=== PATIENT | female | born 1945 | race American Indian/Alaskan Native ===

== ENCOUNTER 2016-10-09 11:37 | Outpatient (CLI) | payer MEDICARE ==
[2016-10-09 12:25] LABS: Hematocrit 39.8 % (30.3-42.9); Hemoglobin 12.9 gm/dl (10.1-14.3); Mean Corpuscular HGB Conc 32 % (30-34); Mean Corpuscular Hemoglobin 29 pg (28-32); Mean Corpuscular Volume 91 fl (79-97); Platelet Count 171 K/mm3 (140-440); Red Blood Count 4.39 M/mm3 (3.65-5.03); Red Cell Distribution Width 14.2 % (13.2-15.2)
[2016-10-09 12:41] LABS: Alanine Aminotransferase 9 units/L (7-56); Albumin 3.9 g/dL (3.9-5); Albumin/Globulin Ratio 1.1 %; Alkaline Phosphatase 82 units/L (35-129); Anion Gap 16 mmol/L; BUN/Creatinine Ratio 5.71; Bilirubin,Total 0.6 mg/dL (0.1-1.2); Blood Urea Nitrogen 4 mg/dL (7-17); Calcium 9.3 mg/dL (8.4-10.2); Carbon Dioxide 27 mmol/L (22-30); Chloride 105.6 mmol/L (98-107); Glucose 90 mg/dL (65-100); Potassium 3.4 mmol/L (3.6-5.0); Sodium 145 mmol/L (137-145); Total Protein 7.3 g/dL (6.3-8.2); Uric Acid 3.8 mg/dL (3.5-7.6)
[2016-10-09 13:05] LABS: Erythrocyte Sedimentation Rate 28 mm/Hr (0-20)
== END 2016-10-09 11:38 | disposition home or self-care (01) ==
LOC: LAB 11:37
PROVIDERS: ATTEND Internal Medicine Rheumatology
DX: M15.0 Primary generalized (osteo)arthritis (principal); M06.9 Rheumatoid arthritis, unspecified
CPT/HCPCS: 36415; 80053; 82164; 84550; 85027; 85652; 86038; 86140; 86200; 86225; 86235; 86618

== ENCOUNTER 2017-01-29 16:59 | Outpatient (CLI) | payer MEDICARE ==
[2017-01-29 17:19] LABS: Basophils % (Auto) 1.2 % (0.0-1.8); Eosinophils % (Auto) 7.8 % (0.0-4.3); Hematocrit 40.5 % (30.3-42.9); Hemoglobin 13.3 gm/dl (10.1-14.3); Mean Corpuscular HGB Conc 33 % (30-34); Mean Corpuscular Hemoglobin 30 pg (28-32); Mean Corpuscular Volume 91 fl (79-97); Platelet Count 201 K/mm3 (140-440); Red Blood Count 4.45 M/mm3 (3.65-5.03); Red Cell Distribution Width 13.6 % (13.2-15.2); White Blood Count 4.7 K/mm3 (4.5-11.0)
[2017-01-29 17:42] LABS: Alanine Aminotransferase 9 units/L (7-56); Albumin 4.1 g/dL (3.9-5); Albumin/Globulin Ratio 1.1 %; Alkaline Phosphatase 74 units/L (35-129); Anion Gap 17 mmol/L; BUN/Creatinine Ratio 8.57; Blood Urea Nitrogen 6 mg/dL (7-17); Calcium 9.6 mg/dL (8.4-10.2); Carbon Dioxide 27 mmol/L (22-30); Chloride 103.8 mmol/L (98-107); Glucose 92 mg/dL (65-100); Potassium 3.8 mmol/L (3.6-5.0); Sodium 144 mmol/L (137-145); Total Protein 7.9 g/dL (6.3-8.2)
[2017-01-29 17:55] LABS: Erythrocyte Sedimentation Rate 37 mm/Hr (0-20)
== END 2017-01-29 17:00 | disposition home or self-care (01) ==
LOC: LAB 16:59
PROVIDERS: ATTEND Internal Medicine Rheumatology
DX: M15.0 Primary generalized (osteo)arthritis (principal); L52 Erythema nodosum
CPT/HCPCS: 36415; 80053; 82164; 85025; 85652; 86140